=== PATIENT | male | born 1965 | race Caucasian/White ===

== ENCOUNTER 2019-01-12 09:44 | Day surgery (SDC) | payer OTHER ==
--- NOTE | 2019-01-12 07:07 | PDHPUP ---
History & Physical Update H&P update statement: This history and physical update is based on an assessment of the patient which was completed after admission or registration (within 24 hours), but prior to the surgery/procedure. H&P update: H&P reviewed & patient examined, no change in patient's condition since H&P completed
[2019-01-12] MEDS ORDERED: ceFAZolin 2 GM/DEXTROSE 100 ML IV ONE (09:59)
[2019-01-12] MEDS ORDERED: LR 1,000 ML IV ONE (09:59)
[2019-01-12] MEDS ORDERED: BUPIVACAINE/EPI 0.5% 30 ML SDV ONE (10:55)
[2019-01-12] MEDS ORDERED: MIDAZOLAM 2 MG/2 ML VIAL ONE (10:58)
--- NOTE | 2019-01-12 10:58 | PDANEPAE ---
ANE History of Present Illness inguinal hernia on left and here for robotic repair ANE Past Medical History - Cardiovascular History Hx Hypertension: Yes Hx Arrhythmias: No Hx Chest Pain: No Hx Coronary Artery / Peripheral Vascular Disease: No Hx CHF / Valvular Disease: No Hx Palpitations: No - Pulmonary History Hx COPD: No Hx Asthma/Reactive Airway Disease: No Hx Recent Upper Respiratory Infection: No Hx Oxygen in Use at Home: No Hx Sleep Apnea: No Sleep Apnea Screening Result - Last Documented: Positive - Neurologic History Hx Cerebrovascular Accident: No Hx Seizures: No Hx Dementia: No - Endocrine History Hx Diabetes: No - Renal History Hx Renal Disorders: No - Liver History Hx Hepatic Disorders: No - Neurological & Psychiatric Hx Hx Neurological and Psychiatric Disorders: No - Cancer History Hx Cancer: Yes Cancer History Comment: skin cancer squamous cell - Congenital Disorder History Hx Congenital Disorders: No - GI History Hx Gastrointestinal Disorders: No - Other Health History Other Health History: none - Chronic Pain History Chronic Pain: Yes (dislocated right shoulder) - Surgical History Prior Surgeries: knee scope in ANE Review of Systems Review of Systems: - Exercise capacity METS (RN): 6 METS ANE Patient History - Allergies Allergies/Adverse Reactions: No Known Allergies Allergy (Verified 01/07/19 12:33) - Home Medications Home Medications: Atorvastatin Calcium 01/07/19 [Last Taken 01/12/19] Calcium 01/07/19 [Last Taken 01/12/19] Cholecalciferol (Vitamin D3) 01/07/19 [Last Taken 01/12/19] Coq10 01/07/19 [Last Taken 01/12/19] Lisinopril 01/07/19 [Last Taken 01/12/19] Magnesium 01/07/19 [Last Taken 01/12/19] Rufus-3 Fish Oil Softgel 01/07/19 [Last Taken 01/12/19] Vitamin C 01/07/19 [Last Taken Unknown] Vitamin E 01/07/19 [Last Taken 01/12/19] - NPO status NPO Since - Liquids (Date): 01/12/19 NPO Since - Liquids (Time): 08:30 NPO Since - Solids (Date): 01/11/19 NPO Since - Solids (Time): 22:00 - Smoking Hx Smoking Status: Former smoker - Family Anes Hx Family Hx Anesthesia Complications: none ANE Labs/Vital Signs - Vital Signs Blood Pressure: 147/87 Heart Rate: 74 Respiratory Rate: 16 O2 Sat (%): 95 Height: 185.42 cm Weight: 118.841 kg ANE Physical Exam - Airway Neck exam: FROM Mallampati Score: Class 3 Mouth exam: normal dental/mouth exam - Pulmonary Pulmonary: no respiratory distress, no rales or rhonchi - Cardiovascular Cardiovascular: regular rate and rhythym, no murmur, rub, or gallop - ASA Status ASA Status: III ANE Anesthesia Plan Anesthesia Plan: general endotracheal anesthesia Total IV Anesthesia: No
[2019-01-12] MEDS ORDERED: MIDAZOLAM 2 MG/2 ML VIAL IVP ONE (10:59)
[2019-01-12] MEDS ORDERED: fentaNYL 100 MCG/2 ML INJ ONE ×2 (11:13→12:07)
[2019-01-12] MEDS ORDERED: ROCURONIUM 50 MG/5 ML VIAL ONE (11:13)
[2019-01-12] MEDS ORDERED: LIDOCAINE 2% 100 MG/5 ML SYR ONE (11:13)
[2019-01-12] MEDS ORDERED: PROPOFOL 200 MG/20 ML VIAL ONE ×2 (11:13→12:08)
[2019-01-12] MEDS ORDERED: SUGAMMADEX SODIUM 200 MG/2 ML VIAL IVP ONE (12:32)
[2019-01-12] MEDS ORDERED: KETOROLAC 30 MG/1 ML SDV ONE (12:32)
[2019-01-12] MEDS ORDERED: DEXAMETHASONE 4 MG/ML VIAL ONE (12:32)
[2019-01-12] MEDS ORDERED: ONDANSETRON 4 MG/2 ML VIAL ONE (12:32)
--- NOTE | 2019-01-12 12:36 | POSTOPPROG ---
Post Op Note Date of Operation: 01/12/19 Surgeon: Mahad Boland Migratory Worker: SHELIA Smiley Anesthesiologist: Ольга Anesthesia: GET(General Endotracheal) Pre-op Diagnosis: left inguinal hernia Post-op Diagnosis: bilateral inguinal hernia Procedure: Robotic assisted bilateral inguinal hernia repair with mesh Findings: L: direct hernia, R: indirect Inf/Abcess present in the surg proc area at time of surgery?: No EBL: Minimal
[2019-01-12] MEDS ORDERED: MEPERIDINE 25 MG/0.5 ML AMP IVP PRN (12:50)
[2019-01-12] MEDS ORDERED: DIAZEPAM 5 MG/ML 1 ML SYR IVP PRN (12:50)
[2019-01-12] MEDS ORDERED: HYDROmorphONE/DILAUDID 2 MG/ML INJ IVP PRN (12:50)
[2019-01-12] MEDS ORDERED: NALOXONE HCL 0.4 MG/ML INJ IVP PRN (12:50)
[2019-01-12] MEDS ORDERED: ACETAMINOPHEN 500 MG TAB PO PRN (12:50)
[2019-01-12] MEDS ORDERED: PHENYLEPHRINE HCL 100 MCG/ML SYR IVP PRN (12:50)
[2019-01-12] MEDS ORDERED: LR 500 ML IV PRN (12:50)
[2019-01-12] MEDS ORDERED: PROMETHAZINE HCL 25 MG/ML INJ IVP PRN (12:50)
[2019-01-12] MEDS ORDERED: fentaNYL 100 MCG/2 ML INJ IVP PRN (12:50)
[2019-01-12] MEDS ORDERED: oxyCODONE IR 5 MG TAB PO PRN (12:50)
--- NOTE | 2019-01-12 12:51 | POSTANESTH ---
Post Anesthetic Evaluation Cardiovascular Status: Normal, Stable Respiratory Status: Normal, Stable Level of Consciousness/Mental Status: Can Participate in Eval, Alert and Oriented Pain Control: Adequate, Prn Tx Ordered Nausea/Vomiting Control: Adequate, Prn Tx Ordered Complications Possibly Related to Anesthesia: None Noted
--- NOTE | 2019-01-12 14:48 | GOP ---
[f rep st] OPERATIVE REPORT DATE OF OPERATION: 01/12/2019 SURGEON: Mahad Boland MD SPECIALTY DEVELOPMENT CONSULTANT: Marie Church CFA. ANESTHESIA: General endotracheal. ANESTHESIOLOGIST: Anu Rolon DO. PREOPERATIVE DIAGNOSIS: Left inguinal hernia. POSTOPERATIVE DIAGNOSIS: Bilateral inguinal hernias. PROCEDURE PERFORMED: Robotic-assisted bilateral inguinal hernia repair with mesh. FINDINGS: Left side had a moderate-sized direct defect. The right side had a moderate-sized indirec t defect. Both sides were skeletonized and repaired with Bard 3D Light site specific mesh. SPECIMENS: None. ESTIMATED BLOOD LOSS: 5 cc. DESCRIPTION OF PROCEDURE: The patient was greeted in the preoperative suite. Once again, risks, alisa efits, and alternatives were discussed. Consent was signed. He was then brought back to the operati ve suite and placed on the OR table in the supine position. After all anesthesia machines including SCDs were on and functioning, [employer] timeout was performed. After successful maverick ction of general anesthesia, the patient's abdomen was prepped and draped in typical sterile fashion. I commenced the procedure by making a supraumbilical cutdown, through which the Veress needle was p assed. I achieved pneumoperitoneum to 15 mmHg CO2, which was well tolerated by the patient. Through this, I then inserted an 8 mm trocar. Once successfully in the abdomen, I inserted 2 additional 8 m m trocars, 1 in the right and 1 in the left upper quadrant, both under direct visualization. The pat ient was then placed in gentle Trendelenburg position, and the robot was docked. I first turned my a ttention towards the left side where there were some adhesions of the sigmoid colon. I made my perit guy defect superior to this, and secured this all the way down to Christopher ligament and the ASIS. I skeletonized the cord structures and reduced the direct defect. I found no other significant finding s. The area was then repaired with a Bard 3D Light left-sided mesh. It was attached to Christopher ligam ent, as well as circumferentially around the direct defect. The peritoneum was then closed with a ru nning V-Loc suture. In the same fashion, I turned my attention towards the right side where an indir ect defect was identified. In the same fashion, my peritoneal flap was made from the ASIS all the wa y down to Christopher ligament. The cord structures were successfully skeletonized. I identified no othe r significant findings in the area, and the area was repaired with a right-sided Bard 3D Light large- sized mesh. Peritoneum was then closed with a running V-Loc suture. The ports were then removed. P neumoperitoneum was evacuated. The skin was closed with Monocryl. Dermabond was placed. The patien t was then extubated in the operative suite and taken to the PACU in satisfactory condition. DRAINS: None. COUNTS: All counts were reported as correct x2. /[id number]/MODL
[2019-01-12 14:57] VITALS: BP 150/78
== END 2019-01-12 14:59 | disposition home or self-care (01) ==
LOC: FSGY 09:44
PROVIDERS: ATTEND Surgery
PROC: 8E0WXCZ Robotic Assisted Procedure of Trunk Region (ICD-10-PCS; principal; 2019-01-12 11:30)
PROC: 0YUA4JZ Supplement Bilateral Inguinal Region with Synthetic Substitute, Percutaneous Endoscopic Approach (ICD-10-PCS; principal; 2019-01-12 11:30)
DX: K40.20 Bilateral inguinal hernia, without obstruction or gangrene, not specified as recurrent (principal)
CPT/HCPCS: C1781; J0690; J1100; J1885; J2001; J2250; J2405; J2704; J3010